=== PATIENT | female | born 1945 | race Caucasian/White ===

== ENCOUNTER → 2016-05-30 | Outpatient (CLI) | payer OTHER ==
--- NOTE | ~2016-05-30 | MY11 ---
[facility] A Service of [facility] RADIOLOGY TEXT RESULTS PATIENT: RUDY MCDOWELL LOCATION: [facility] : 45 UNIT #: [id number] AGE: [address]: Eliane Cantu MD SEX: F ORDER DR: [id number] [facility] [address] [place], [place] [address] [id number] O MR#: [id number] Acc #: [id number] NAME: RUDY MCDOWELL : 1945 SEX: F STUDY DATE/TIME: 05/30/2016 10:03 UNIT: [facility] ROOM: STUDY DESCRIPTION: MY Mammogram Screening Dig Bob Attending Physician: Eliane Cantu M.D. Ordering Physician: Eliane Cantu M.D. Primary Care Physician: Swetha Toribio A.P.R.N. MEDICAL IMAGING REPORT This report is preliminary unless electronic signature is present EXAM Bilateral digital screening mammogram with CAD, 05/30/2016. INDICATION 71-year-old female for routine screening. No reported problems. No personal history of breast cancer. Family history positive in the patient's mother at age 69. No surgeries. TECHNIQUE CC and MLO views of there breasts were obtained and reviewed with an FDA-approved CAD device. COMPARISON 08/10/2014, 07/20/2011, 07/10/2010 FINDINGS Breast parenchyma is heterogeneously dense. This degrades sensitivity of screening mammography. The pattern is unchanged. There is no new dominant nodule, mass, or suspicious cluster of microcalcifications. Benign calcifications are present. IMPRESSION Benign screening mammogram. One-year followup recommended. Patients over the age of 40 are entered into a reminder system with target due date for the next mammogram. A result letter will also be sent to the patient. BIRADS: 2 Benign finding. Dictated by... [facility] A Service of [facility] RADIOLOGY TEXT RESULTS PATIENT: RUDY MCDOWELL LOCATION: [facility] : 45 UNIT #: [id number] AGE: [address]: Eliane Cantu MD SEX: F ORDER DR: Eriberto Dietz M.D. THIS IS AN ELECTRONICALLY VERIFIED REPORT Eriberto Dietz M.D. at 05/30/2016 4:58 PM SAMANTHA/erma TD: 05/30/2016 14:47 JOB #: [id number] MEDICAL IMAGING REPORT COPY
--- NOTE | ~2016-05-30 | BD1 ---
[facility] A Service of [facility] RADIOLOGY TEXT RESULTS PATIENT: RUDY MCDOWELL LOCATION: [facility] : 45 UNIT #: [id number] AGE: [address]: Eliane Cantu MD SEX: F ORDER DR: [id number] [facility] [address] [place], [place] [address] [id number] O MR#: [id number] Acc #: [id number] NAME: RUDY MCDOWELL : 1945 SEX: F STUDY DATE/TIME: 05/30/2016 10:18 UNIT: [facility] ROOM: STUDY DESCRIPTION: BD Dexa Bone Dens 1+ Site Attending Physician: Eliane Cantu M.D. Ordering Physician: Eliane Cantu M.D. Primary Care Physician: Swetha Toribio A.P.R.N. MEDICAL IMAGING REPORT This report is preliminary unless electronic signature is present EXAM DEXA scan 05/30/2016 HISTORY Status post menopause with no hormone replacement therapy. Osteopenia. Hypertension with blood pressure medication for 3 years. Smoking history for 15 years. FINDINGS Bone mineral density in the lumbar spine from L1-L4 on 1.078 g/cm2 which is 0.3 standard deviations above the mean when compared to the young adult reference population which is within the range of normal. This is 2.5 standard deviations above the mean when compared to the age-matched population. Compared with 02/15/2014 there has been a decrease in bone mineral density in the lumbar spine of 5.6%. Bone mineral density in the left femoral neck was 0.725 g/cm2 which is 1.1 standard deviations below the mean when compared to the young adult reference population which is characteristic of osteopenia. This is 0.7 standard deviations above the mean when compared to the age-matched population. Compared with 02/15/2014 there has been a decrease in bone mineral density in the left hip of 0.5%. IMPRESSION Bone mineral density in the lumbar spine within the range of normal and within the left hip characteristic of osteopenia. Compared with 02/15/2014 there has been a decrease in bone mineral density in the lumbar spine and the left hip. Dictated by... Mateo Watt M.D. THIS IS AN ELECTRONICALLY VERIFIED REPORT [facility] A Service of [facility] RADIOLOGY TEXT RESULTS PATIENT: RUDY MCDOWELL LOCATION: [facility] : 45 UNIT #: [id number] AGE: [address]: Eliane Cantu MD SEX: F ORDER DR: Mateo Watt M.D. at 05/30/2016 5:03 PM MARIFER/swapna TD: 05/30/2016 14:46 JOB #: [id number] MEDICAL IMAGING REPORT COPY
== END | disposition home or self-care (01) ==
LOC: CWCC 09:32
DX: Z13.820 Encounter for screening for osteoporosis (principal); Z12.31 Encounter for screening mammogram for malignant neoplasm of breast; M85.88 Other specified disorders of bone density and structure, other site; Z80.3 Family history of malignant neoplasm of breast
CPT/HCPCS: 77080; G0202

== ENCOUNTER → 2016-10-08 | Outpatient (CLI) | payer OTHER ==
--- NOTE | ~2016-10-08 | CR63 ---
[facility] A Service of [facility] RADIOLOGY TEXT RESULTS PATIENT: RUDY MCDOWELL LOCATION: [facility] : 45 UNIT #: [id number] AGE: [address]: Yuri Hawkins MD SEX: F ORDER DR: [id number] [facility] [address] [place], [place] [address] [id number] O MR#: [id number] Acc #: [id number] NAME: RUDY MCDOWELL : 1945 SEX: F STUDY DATE/TIME: 10/08/2016 8:58 UNIT: [facility] ROOM: STUDY DESCRIPTION: CR Chest 2 View Attending Physician: Yuri Hawkins M.D. Referring Physician: Yuri Hawkins M.D. Ordering Physician: Yuri Hawkins M.D. Primary Care Physician: Eliane Cantu M.D. MEDICAL IMAGING REPORT This report is preliminary unless electronic signature is present EXAM Chest 10/08/2016. HISTORY 71-year-old woman, history of ulcerative colitis. Immunosuppression therapy. Patient short of air with activity, symptoms times many years. Past smoking history. COMPARISON Chest 10/04/2015. FINDINGS PA and lateral chest views show normal cardiac size and configuration. Small calcified right hilar nodes are stable. Mediastinal contours are preserved. Bilateral lungs are expanded and clear. IMPRESSION Negative and stable chest. Dictated by... Wilner Alexis M.D. THIS IS AN ELECTRONICALLY VERIFIED REPORT Wilner Alexis M.D. at 10/08/2016 12:01 PM SAMUEL/neela TD: 10/08/2016 11:55 JOB #: [id number] MEDICAL IMAGING REPORT Page 1 of 1 COPY
== END | disposition home or self-care (01) ==
LOC: CRAD 08:47
DX: K51.00 Ulcerative (chronic) pancolitis without complications (principal); Z92.25 Personal history of immunosuppression therapy
CPT/HCPCS: 71020